=== PATIENT | male | born 1945 | race Caucasian/White ===

== ENCOUNTER 2022-01-20 13:30 | Outpatient (CLI) | payer MEDICARE, SELFPAY ==
--- NOTE | ~2022-01-20 | CT_ITS ---
EXAMINATION: CT abdomen pelvis wo/w con DATE: 01/20/2022 14:22 INDICATION: Microscopic hematuria TECHNIQUE: Computed tomography (CT) of the abdomen and pelvis was performed without intravenous contr ast. Automated exposure control and iterative reconstruction technique were employed. Exam dose: 182 6.48 mGy-cm total exam DLP. COMPARISON: January 20, 2022 KUB FINDINGS: Predominantly peripheral pulmonary septal soft tissue thickening, likely due to chronic int erstitial fibrotic change. No consolidation at the lung bases. Borderline heart size. No pericardial or pleural effusion. Status post cholecystectomy. No hepatic, splenic, pancreatic space-occupying mass lesion. Mild intrah epatic bile duct prominence, likely due to cholecystectomy. No pancreatic duct dilatation. Normal morphology of the adrenal glands. 7.5 mm lower pole left renal cyst. 12 mm parapelvic left renal cyst. Approximately 5.4 mm nonobstructing upper pole right renal calculus Approximately 7.4 mm nonobstructing lower pole right renal calculus. No left renal calculus. No urete ral calculi or hydroureteronephrosis. The urinary bladder is unremarkable. There is prostate enlargem ent as well as multiple prostate calcifications. There is extensive calcification of the abdominal aorta and prominent calcification at the origins of the renal arteries. No abdominal aortic aneurysm. No intraperitoneal or retroperitoneal or pelvic ma ss lesion or adenopathy or ascites. Normal appendix. Right inguinal hernia containing a nonobstructed non strangulated loop of small bowel. Small fat-cont aining left inguinal hernia. Diverticulosis of the colon; no CT evidence of diverticulitis. No bowel obstruction, bowel wall thick ening, pneumatosis or intraperitoneal free air. Small fat-containing umbilical hernia. Multilevel degenerative disc disease, most severe at L3-4, with retrolisthesis at this level. Mild to moderate degenerative disease at L1-2 and L2-3 with mild retrolisthesis at each of these levels. Mod erately severe degenerative disc disease at L5-S1. Status post bilateral posterior spinal fusion at L4-5 by means of pedicle screws and rods. Bilateral hip osteoarthritis. More severe on the left IMPRESSION: Prostate enlargement and calcifications 2 nonobstructing right renal calculi 7.5 and 12 mm left renal cysts Status post cholecystectomy Small sliding hiatal hernia Right inguinal hernia containing a nonobstructed loop of small bowel. Small fat-containing umbilical and left inguinal hernias. Diverticulosis of the colon; no CT evidence of diverticulitis Reviewed, dictated and finalized at [facility]. Reviewed, dictated and finalized at [facility]. IMPRESSION: Prostate enlargement and calcifications 2 nonobstructing right renal calculi 7.5 and 12 mm left renal cysts Status post cholecystectomy Small sliding hiatal hernia Right inguinal hernia containing a nonobstructed loop of small bowel. Small fat -containing umbilical and left inguinal hernias. Diverticulosis of the colon; no CT evidence of diverticulitis
--- NOTE | ~2022-01-20 | XR_ITS ---
EXAMINATION: XR abdomen/kub 1V INDICATION: Microscopic hematuria TECHNIQUE: Supine views of the abdomen were obtained on 2 radiographs. COMPARISON: CT from today FINDINGS: There is an 11 mm stone in the lower pole of the right kidney. The stone detected in the up per pole of the right kidney on the comparison CT likely projects in the same region as the cholecyst ectomy clips. A moderate volume of colonic stool is present. Phleboliths are noted in the pelvis. The re is mild osteoarthritis of the hips. Changes of posterior fusion are noted at L4-5. IMPRESSION: 1. Right nephrolithiasis. Reviewed, dictated and finalized at [facility]. IMPRESSION: 1. Right nephrolithiasis.
[2022-01-20 14:05] LABS: Estimated Glomerular Filt Rate 59
== END 2022-01-20 13:31 | disposition home or self-care (01) ==
LOC: ANHIMG 13:37
PROVIDERS: Visit Provider Urology
DX: R31.29 Other microscopic hematuria (principal); K42.9 Umbilical hernia without obstruction or gangrene; N20.0 Calculus of kidney; M47.817 Spondylosis without myelopathy or radiculopathy, lumbosacral region; Z98.1 Arthrodesis status; N40.0 Benign prostatic hyperplasia without lower urinary tract symptoms; K57.30 Diverticulosis of large intestine without perforation or abscess without bleeding
CPT/HCPCS: 74018; 74178; Q9967

== ENCOUNTER 2022-07-11 13:47 | Emergency (ER) | payer MEDICARE, SELFPAY ==
[2022-07-11 13:55] VITALS: BP 189/99; PULSE 61; RESP 16; TEMP 37; O2SAT 98
--- NOTE | 2022-07-11 15:09 | ED.GENADULT ---
HPI - General Adult General Chief complaint: Ear Stated complaint: Ear Problem Source: patient and family Mode of arrival: ambulatory Limitations: no limitations History of Present Illness HPI narrative: Patient presents for evaluation of hearing loss on the left side. Symptoms occurred abruptly 2 weeks ago. He was not experiencing any pain at that time nor has he since then. He does not remember being exposed to any loud sounds. He has been cleaning his ears out with Q-tips but does not remember doing so prior to the time of symptom onset. He denies any drainage from the ear. He went to an urgent care approximately a week ago and was told that his ear is looked red . He was given amoxicillin which he has been taking since that time. He is deaf in the right ear. He purchased a hearing aid approximately a year ago for the left side. He was using it up until yesterday at which time he lost it. He was able to hear with a hearing aid in. No fever, chills, nausea, vomiting, tinnitus, drainage from the ear. Related Data Home Medications Medication Instructions Recorded Confirmed amoxicillin 500 mg capsule 500 mg PO BID 07/11/22 07/11/22 hydrocodone 7.5 mg-acetaminophen 1 tablet PO Q6H PRN Pain 07/11/22 07/11/22 325 mg tablet sertraline 100 mg tablet 100 mg PO BID 07/11/22 07/11/22 Allergies Allergy/AdvReac Type Severity Reaction Status Date / Time No Known Allergies Allergy Verified 07/11/22 14:34 Review of Systems Review of Systems: CONSTITUTIONAL: Denies fever, chills, or sweats. EYES: Denies visual changes, redness, or discharge. ENT: Reports chronic hearing loss on right side. Reports two week history of hearing loss on left. Denies rhinorrhea, congestion, sore throat, or otalgia. CARDIOVASCULAR: Denies chest pain, palpitations, or edema. RESPIRATORY: Denies cough or dyspnea. GASTROINTESTINAL: Denies abdominal pain, nausea, vomiting, or diarrhea. GENITOURINARY: Denies dysuria or hematuria. SKIN: Denies rash or itching. MUSCULOSKELETAL: Denies back pain, joint pain, or myalgia. NEUROLOGIC: Denies headache, numbness, dizziness, or weakness. PSYCHIATRIC: Denies anxiety or depression. 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 HEAD: Normocephalic, atraumatic. EYES: PERRLA and EOMI. ENT: Nares clear, no rhinorrhea or epistaxis. Mucous membranes moist. Oropharynx without tonsillar hypertrophy exudate or other lesions. There is perforation to the right tympanic membrane. There is a perforation to the left tympanic membrane. NECK: Supple. No adenopathy or masses. No carotid bruits or JVD CHEST: Clear to auscultation. No respiratory distress. No wheezes rales or rhonchi HEART: Regular rate and rhythm. No murmur heard. Normal peripheral pulses. ABDOMEN: Soft, nontender, nondistended, normal active bowel sounds. EXTREMITIES: Normal range of motion. No edema. SKIN: Warm, dry, no rash. NEURO: No focal deficits. Alert and oriented x3. PSYCH: Normal mood and affect. Course Course Emergency Course: This is a 77-year-old male with a history of chronic right-sided hearing impairments who presented with acute onset left-sided
== END 2022-07-11 15:11 | disposition home or self-care (01) ==
PROVIDERS: Emergency Provider Nurse Practitioner; PCP Family Medicine
DX: H72.93 Unspecified perforation of tympanic membrane, bilateral (principal)
CPT/HCPCS: 99213; G0463

== ENCOUNTER 2022-09-13 11:40 | Outpatient (CLI) | payer MEDICARE, SELFPAY ==
--- NOTE | ~2022-09-13 | XR_ITS ---
Supine and upright views of the abdomen Clinical history: Renal stone COMPARISON: 01/20/2022 Findings: Bowel gas pattern is nonspecific. No evidence for obstruction or free air. Right renal ston es are similar to prior exam. Cholecystectomy clips noted. Lumbar spine fixation hardware is unchange d. Impression: Right nephrolithiasis. Reviewed, dictated and finalized at location . [facility] [employer] Impression: Right nephrolithiasis.
== END 2022-09-13 11:41 | disposition home or self-care (01) ==
LOC: ANHIMG 11:45
PROVIDERS: PCP Family Medicine; Visit Provider Urology
DX: N20.0 Calculus of kidney (principal)
CPT/HCPCS: 74018

== ENCOUNTER 2023-08-08 11:34 | Emergency (ER) | payer MEDICARE, SELFPAY ==
--- NOTE | 2023-08-08 11:36 | ED.WOUNDLAC ---
HPI - Wound/Laceration General Chief Complaint: Wound/Laceration Stated Complaint: Laceration to Middle Finger Time Seen by Provider: 08/08/23 12:05 Source: patient and RN notes reviewed Mode of arrival: ambulatory Limitations: no limitations History of Present Illness HPI narrative: 78-year-old male presents with concern 3rd digit of the left hand. Reports prior to arrival he lacerated the digit on a chain saw. He denies decreased sensation, strength, range of motion on the digit. He is up-to-date on his tetanus vaccination. Related Data Home Medications Medication Instructions Recorded Confirmed amlodipine 10 mg tablet mg 08/08/23 esomeprazole magnesium 40 mg mg 08/08/23 capsule,delayed release hydrocodone 7.5 mg-acetaminophen tablet 08/08/23 325 mg tablet tamsulosin 0.4 mg capsule mg PO 08/08/23 Allergies Allergy/AdvReac Type Severity Reaction Status Date / Time No Known Allergies Allergy Verified 07/11/22 14:34 Review of Systems Review of Systems: CONSTITUTIONAL: Denies malaise, chills, sweats, or fever. SKIN: Reports laceration to the 3rd digit of his left hand MUSCULOSKELETAL: Denies muscle skeletal pain NEUROLOGIC: Denies numbness, weakness All systems reviewed & are unremarkable except as noted in HPI and below PMFSH Past Medical History Medical History (Updated 08/08/23 @ 12:33 by Natalie Puentes NP) Chronic back pain Deafness in right ear Surgical History Surgical History History of back surgery History of ear surgery Family History Family History (Updated 07/11/22 @ 15:14 by Ti Gresham, [facility], ) Mother Family history non-contributory Social History Social History Alcohol intake: never Substance use: never Living arrangements: with family Gender identity (if verbalized by the patient): Female Sexual Orientation (if Verbalized by the Patient): Straight or Heterosexual Spiritual care concerns: No Comments At time of signature, agree with nursing past medical, surgical, social and family history. There is no relevant family history pertinent to the presenting complaint Exam Narrative: GENERAL: Well-appearing, well-nourished, and in no acute distress. HEAD: Normocephalic EYES: PERRLA, conjunctivae clear NECK: Supple. CHEST: Speaks in full sentences. No respiratory distress. HEART: Regular rate and rhythm. Normal and equal peripheral pulses. EXTREMITIES: 3rd digit of left hand has grossly normal strength and sensation. 5/5 strength with digit flexion, extension. Range of motion normal. Normal digital cascade with flexion of fingers Normal sensation of each side of finger. Can perform 'okay' sign, 'cross over finger test of index and middle fingers' and 'thumbs up' sign. No scissoring. Normal thumb opposition. Good capillary refill and radial pulse. Distal capillary refill less than 3 seconds. Patient is right hand dominant SKIN: Warn, dry, intact, pink. 2.5 cm laceration noted to the lateral 3rd digit of the left hand, gaping, with some skin maceration NEURO: Alert and oriented x3. PSYCH: Normal mood and affect Course Course Emergency Course: Patient is aware of diagnosis, understands and agrees to treatment plan. Anticipatory guidance given. Patient agrees to follow-up as directed and is aware of reasons to seek care at the emergency department. Portions of this record may have been created with voice recognition software Level of Care: Express Care Visit Vital Signs Vital signs: Reviewed. Procedures Laceration Laceration 1: Date: 08/08/23 Time: 12:15 Site: hand Side (If applicable): left Size (cm): 2.5 Description: irregular Depth: simple, single layer Local Anesthetic: lidocaine 1% Amount of anesthesia used (mL): 1.5 Pre-repair: wound explored and
[2023-08-08 11:51] VITALS: BP 162/103; PULSE 70; RESP 16; TEMP 36.6; O2SAT 98
== END 2023-08-08 12:38 | disposition home or self-care (01) ==
PROVIDERS: Emergency Provider Nurse Practitioner; PCP Family Medicine
DX: S61.213A Laceration without foreign body of left middle finger without damage to nail, initial encounter (principal); W29.3XXA Contact with powered garden and outdoor hand tools and machinery, initial encounter; I10 Essential (primary) hypertension
CPT/HCPCS: 12001; 99212; G0463

== ENCOUNTER 2024-06-02 13:36 | Emergency (ER) | payer MEDICARE, SELFPAY ==
[2024-06-02 13:48] VITALS: BP 162/90; PULSE 81; RESP 20; TEMP 36.9; O2SAT 98
[2024-06-02] MEDS: TETANUS,DIPHTHERIA,AC PERTUSSIS ADULT (0.5 ML) BOOSTRIX IM (14:48)
--- NOTE | 2024-06-02 21:21 | ED.GENADULT ---
HPI - General Adult General Chief complaint: Wound/Laceration Stated complaint: left hand finger lac Time Seen by Provider: 06/02/24 13:54 Source: patient, RN notes reviewed and old records reviewed Mode of arrival: ambulatory Limitations: no limitations History of Present Illness HPI narrative: 79-year-old male to Express Care for complaint of laceration to left dorsal 3rd finger. Patient states that he was helping his son fixes furnace when part of the furnace fell onto his finger causing blunt force trauma. Patient reports injury approximately 2 hours prior to arrival. 3 cm approximated wound present. Bleeding controlled. Patient uncertain of tetanus status. Patient resting in exam room in no acute distress. Related Data Home Medications Medication Instructions Recorded Confirmed amlodipine 10 mg tablet mg 08/08/23 esomeprazole magnesium 40 mg mg 08/08/23 capsule,delayed release hydrocodone 7.5 mg-acetaminophen tablet 08/08/23 325 mg tablet tamsulosin 0.4 mg capsule mg PO 08/08/23 Allergies Allergy/AdvReac Type Severity Reaction Status Date / Time No Known Allergies Allergy Verified 07/11/22 14:34 Review of Systems Review of Systems: All systems reviewed & are unremarkable except as noted in HPI and below Constitutional: Constitutional: Reports no additional constitutional complaints Eyes: Eyes: Reports no additional eye complaints ENT: Reports system reviewed and no additional complaints, except as documented Cardiovascular: Cardiovascular: Reports no additional cardiovascular complaints, Denies chest pain and Denies dyspnea Respiratory: Respiratory: Reports no additional respiratory complaints, Denies cough and Denies dyspnea Musculoskeletal: Musculoskeletal: Reports no additional musculoskeletal complaints Integumentary/Breasts: Skin/Breast: Reports as per HPI and Reports wounds ( dorsal 3rd digit left hand) Neurologic: Reports system reviewed and no additional complaints, except as documented Psychiatric: Psychiatric: Reports no additional psychiatric complaints [facility] Past Medical History Medical History Chronic back pain Deafness in right ear Surgical History Surgical History History of back surgery History of ear surgery Family History Family History Mother Family history non-contributory Social History Social History Alcohol intake: never Substance use: never Living arrangements: with family Gender identity (if verbalized by the patient): Female Sexual Orientation (if Verbalized by the Patient): Straight or Heterosexual Spiritual care concerns: No Comments At the time of my signature, I reviewed and agree with the nursing past medical, surgical, social, and family history. There is no relevant family history pertinent to the patient complaint. Exam Const: General: cooperative, healthy appearing, comfortable, no acute distress, alert and well nourished Nutritional Appearance: well nourished Orientation/consciousness: patient oriented x3 Limitations: no limitations HENMT: Head: normal to inspection Ears: external ears normal Face/Nose/Sinus: Normal external nose present, Normal nares present, normal facial exam, No erythema and No edema Face and sinus: normal facial exam, no erythema and no edema Mouth: Yes Normal oral and palatal mucosa present Eyes: General: appearance normal, both eyes and all related structures Neck: Neck: normal visual inspection, full ROM and no meningeal signs Lymphatic: no lymphadenopathy noted and no lymphedema noted Chest: Chest palpation & inspection: normal inspection of the chest Resp: Effort & Inspection: normal respiratory effort and able to speak in complete sentences [employer]
== END 2024-06-02 15:04 | disposition home or self-care (01) ==
PROVIDERS: Emergency Provider Nurse Practitioner Family; PCP Family Medicine
DX: S61.213A Laceration without foreign body of left middle finger without damage to nail, initial encounter (principal); W20.8XXA Other cause of strike by thrown, projected or falling object, initial encounter; Z23 Encounter for immunization
CPT/HCPCS: 12002; 90471; 90715; 99213; G0463

== ENCOUNTER 2025-03-17 10:32 | Emergency (ER) | payer MEDICARE, SELFPAY ==
[2025-03-17 10:38] VITALS: BP 182/108; PULSE 68; RESP 20; TEMP 36.9; O2SAT 99
[2025-03-17 10:43] VITALS: BP 173/103
--- NOTE | 2025-03-17 11:02 | ED_ITS ---
HPI - Skin/Abscess/Foreign Bdy General Chief complaint: Skin/Abscess/Foreign Body Stated complaint: Right Ear Pain Time Seen by Provider: 03/17/25 11:00 Source: patient Mode of arrival: ambulatory Limitations: no limitations History of Present Illness HPI narrative: 79 Year old male presented for complaint of redness and swelling to the right outer ear. Onset 3 days. Endorses some red raised spots to his cheek and right upper eyelid. Patient denies significant itching or pain to the site, states it is irritating. He denies any drainage. Has not taken anything for symptoms. Denies lip, tongue, or throat swelling, shortness of breath or wheezing. Denies changes to soap, detergent, lotion, or any other exposures. No one else in the house or any contacts with similar symptoms. Related Data Home Medications ?Medication ?Instructions ?Recorded ?Confirmed ?Last Taken ?Type amlodipine 10 mg tablet mg 08/08/23 Unknown History esomeprazole magnesium 40 mg mg 08/08/23 Unknown History capsule,delayed release hydrocodone 7.5 mg-acetaminophen tablet 08/08/23 Unknown History 325 mg tablet tamsulosin 0.4 mg capsule mg PO 08/08/23 Unknown History Allergies Allergy/AdvReac Type Severity Reaction Status Date / Time No Known Allergies Allergy Verified 07/11/22 14:34 Review of Systems Review of Systems: CONSTITUTIONAL: Denies body aches, fever, chills, or sweats. EYES: Denies visual changes, redness, or discharge. ENT: Denies rhinorrhea, congestion CARDIOVASCULAR: Denies chest pain, palpitations, or edema. RESPIRATORY: Denies cough or dyspnea. GASTROINTESTINAL: Denies abdominal pain, nausea, vomiting, or diarrhea. SKIN: Per HPI MUSCULOSKELETAL: Denies back pain, joint pain, or myalgia. NEUROLOGIC: Denies headache, numbness, tingling, or weakness. [facility] Past Medical History Medical History Chronic back pain Deafness in right ear Surgical History Surgical History History of back surgery History of ear surgery Family History Family History Mother Family history non-contributory Social History Social History Alcohol intake: never Substance use: never Living arrangements: with family Gender identity (if verbalized by the patient): Female Sexual Orientation (if Verbalized by the Patient): Straight or Heterosexual Spiritual care concerns: No Comments At time of signature, I have reviewed and agree with nursing past medical, surgical, social and family history unless otherwise noted. Please see nursing chart for further information. There is no relevant family history pertinent to the presenting complaint Exam Narrative: GENERAL: Well-appearing HEAD: Normocephalic, atraumatic. EYES: conjunctivae clear, and EOMI. Right upper eyelid with mild swelling and erythema ENT: Mucous membranes moist. Oropharynx without edema, erythema or lesions. Right external ear with swelling and erythema extending post auricular, nontender, no drainage. Canal not erythematous, no drainage, no swelling or tragal tenderness. Few scattered erythematous patches extend to right cheek. Nontender, no drainage. NECK: Supple. No lymphadenopathy CHEST: Clear to auscultation. HEART: Regular rate and rhythm. SKIN: Warm, dry. NEURO: Alert and oriented x3. Course Course Emergency Course: Patient is aware of diagnosis, understands and agrees to treatment plan. Anticipatory guidance given. Patient agrees to follow-up as directed and is aware of reasons to seek care at the emergency department. Portions of this record may have been created with voice recognition software Level of Care: Express Care Visit Vital Signs Vital signs: Vital Signs Temperature 98.4 F 03/17/25 10:38 Pulse Rate 68 03/17/25 10:38 Respiratory Rate 20 03/17/25 10:38 Blood Pressure 182/108 H 03/17/25 10:38 Pulse Oximetry 99 03/17/25 10:38 Oxygen Delivery Room Air 03/17/25 10:38 Temperature 98.4 F 03/17/25 10:38 Pulse Rate 68 03/17/25 10:38 Respiratory Rate 20 03/17/25 10:38 Blood Pressure 173/103 H 03/17/25 10:43 Pulse Oximetry 99 03/17/25 10:38 Oxygen Delivery Room Air 03/17/25 10:38 Reviewed MDM - Skin/Abscess/Foreign Bdy MDM Narrative Medical decision making narrative: Discussed physical exam findings and reviewed RXs. Advised supportive measures and signs/symptoms to go to the ER. Pt is appropriate for outpt treatment and f/u. Instructed patient to go to nearest ER immediately for any worsening symptoms including but not limited to: fever, spreading rash, pain, chest pain, trouble breathing, or any symptoms concerning to the patient. Pt is aware of elevated BP, states he has not yet taken his BP meds. Asymptomatic. Differential Diagnosis Differential diagnosis: Likely abscess of skin or subcutaneous tissue, viral exanthem, dermatophytosis, urticaria, herpes zoster, cellulitis, eczema, insect bites, impetigo and contact dermatitis Discharge Plan Discharge Clinical Impression: Cellulitis Patient Disposition: Home Condition: Stable Instructions: Antibiotic Form, Cellulitis (ED) Additional Instructions: Keep the area clean and dry - cleanse with warm water and mild soap and allow to fully dry. Take antibiotics, steroids, and drops as directed Cool compresses to the sites to reduce swelling and itching Avoid scratching to reduce the risk of infection Watch for worsening symptoms including pain, redness, swelling, streaking, pus/drainage, fever. Go to the ER with any of these symptoms or concerns. Follow up with primary care provider; call tomorrow morning to schedule an appointment Patient Language: Telugu Prescriptions: New prednisone 20 mg tablet 40 mg PO DAILY 4 Days Qty: 8 0RF amoxicillin-pot clavulanate 875-125 mg tablet 1 tablet PO Q12H 7 Days Qty: 14 0RF ciprofloxacin-dexamethasone 0.3-0.1 % drops,suspension 4 drp RIGHT EAR Q12H 7 Days Qty: 7.5 0RF No Action tamsulosin 0.4 mg capsule PO amlodipine 10 mg tablet hydrocodone-acetaminophen 7.5-325 mg tablet esomeprazole magnesium 40 mg capsule,delayed release(DR/EC) cephalexin 500 mg capsule 500 mg PO Q12H Qty: 14 0RF Follow-up/Referrals: UNKNOWN,DOCTOR [Primary Care Provider] -
== END 2025-03-17 11:18 | disposition home or self-care (01) ==
PROVIDERS: Emergency Provider Nurse Practitioner Family
DX: H60.11 Cellulitis of right external ear (principal)
CPT/HCPCS: 99213; G0463